=== PATIENT | male | born 1995 | race Caucasian/White ===

== ENCOUNTER 2019-11-12 01:13 | Emergency (ER) | payer OTHER ==
[2019-11-12 01:20] VITALS: BP 132/74
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
[2019-11-12 01:46] LABS: BILIRUBIN,URINE NEGATIVE (NEGATIVE); GLUCOSE, URINE (UA) NEGATIVE (NEGATIVE); KETONES,URINE (UA) NEGATIVE (NEGATIVE); LEUKOCYTE ESTERASE, URINE NEGATIVE (NEGATIVE); NITRITE,URINE NEGATIVE (NEGATIVE); OCCULT BLOOD,URINE NEGATIVE (NEGATIVE); PROTEIN,URINE NEGATIVE (NEGATIVE); UROBILINOGEN,URINE 0.2 (NORMAL) E.U./dL (NORMAL)
[2019-11-12 01:51] LABS: CLARITY,URINE CLEAR (CLEAR)
[2019-11-12 02:04] LABS: MUDS CUTOFF CONCENTRATIONS CUTOFF CONC BELOW:
[2019-11-12 02:13] LABS: AMPHETAMINE SCREEN,URINE NEGATIVE (NEGATIVE); BENZODIAZEPINES SCREEN, URINE NEGATIVE (NEGATIVE); COCAINE SCREEN URINE NEGATIVE (NEGATIVE); METHADONE SCREEN, URINE NEGATIVE (NEGATIVE); METHAMPHETAMINES SCREEN, URINE NEGATIVE (NEGATIVE); OPIATE SCREEN, URINE NEGATIVE (NEGATIVE); OXYCODONE SCREEN, URINE NEGATIVE (NEGATIVE); PROPOXYPHENE SCREEN, URINE NEGATIVE (NEGATIVE); TRICYCLIC ANTIDEPRESSANT,URINE NEGATIVE (NEGATIVE)
[2019-11-12 02:16] LABS: HGB - HEMOGLOBIN 16.2 g/dL (14.0-18.0)
[2019-11-12 02:29] LABS: GLUCOSE 99 mg/dL (70-100)
== END 2019-11-12 02:51 | disposition home or self-care (01) ==
LOC: ED 01:13
DX: Z04.2 Encounter for examination and observation following work accident (principal); V00-Y99 External causes of morbidity; Y92.139 Unspecified place military base as the place of occurrence of the external cause; Y99.1 Military activity
CPT/HCPCS: 36415; 80306; 80320; 81001; 81003; 81025; 82375; 82947; 85014; 85018; 87086; 99281; 99283